=== PATIENT | female | born 1970 | race Asian ===

== ENCOUNTER 2017-11-30 11:10 | Inpatient (IN) | payer BC ==
[~2017-11-30] VITALS: Ht 167.6 cm; Wt 115.2 kg
[2017-11-30 11:10] VITALS: BP_SYST 141
[2017-11-30] MEDS ORDERED: NACL 0.9% 1,000 ML IV ONE (11:31)
[2017-11-30] MEDS ORDERED: ONDANSETRON HCL 4 MG/2 ML VIAL IVP ONE (11:45)
[2017-11-30] MEDS ORDERED: KETOROLAC TROMETHAMINE 30 MG VIAL IVP ONE ×2 (11:45→19:24)
[2017-11-30 11:47] LABS: BASOPHILS % (AUTO) 0.6 % (0.0-2.0); EOSINOPHILS # (AUTO) 0.3 K/uL (0.0-0.4); EOSINOPHILS % (AUTO) 4.5 % (0.0-4.0); HEMATOCRIT 35.9 % (36-48); HEMOGLOBIN 11.8 g/dL (12.0-16.0); LYMPHOCYTES # (AUTO) 1.3 K/uL (1.0-5.5); LYMPHOCYTES % (AUTO) 21.6 % (20.5-51.5); MEAN CORPUSCULAR HEMOGLOBIN 27 pg (27-31); MEAN CORPUSCULAR HGB CONC 33 % (32-36); MEAN CORPUSCULAR VOLUME 81 fL (79.0-98.0); MONOCYTES # (AUTO) 0.3 K/uL (0.0-1.0); NEUTROPHILS # (AUTO) 4.2 K/uL (1.8-7.7); NEUTROPHILS % (AUTO) 68.3 % (40.0-70.0); PLATELET COUNT (AUTO) 223 K/uL (130-430); RED BLOOD CELL COUNT(AUTO) 4.42 MIL/uL (4.2-6.2); RED CELL DISTRIBUTION WIDTH 15.7 % (9.0-15.0); WHITE BLOOD COUNT (AUTO) 6.1 K/uL (4.8-10.8)
[2017-11-30 11:57] LABS: BILIRUBIN,URINE NEGATIVE (NEGATIVE); BLOOD, URINE 3+ (NEGATIVE); CLARITY/URINE HAZY (CLEAR); COLOR,URINE YELLOW (YELLOW); GLUCOSE,URINE NEGATIVE (NEGATIVE); KETONES,URINE NEGATIVE (NEGATIVE); LEUKOCYTE ESTERASE ,URINE NEGATIVE (NEGATIVE); NITRITE, URINE NEGATIVE (NEGATIVE); PROTEIN URINE 1+ (NEGATIVE); UROBILINOGEN,URINE 0.2 (0.2-1.0)
[2017-11-30 11:59] LABS: BACTERIA,URINE FEW /HPF (None Seen); MUCUS,URINE 1+ /LPF (None Seen); RBC,URINE >100 /HPF (0-3); WBC,URINE 0-3 /HPF (0-3)
[2017-11-30 12:11] LABS: PROTHROMBIN TIME 10.1 SECS (9.5-12.5)
[2017-11-30 12:13] LABS: POTASSIUM 3.6 mmol/L (3.5-5.1)
[2017-11-30 12:14] LABS: CALCIUM 8.9 mg/dL (8.4-11.0); CREATININE 0.65 mg/dL (0.55-1.30)
[2017-11-30 12:16] LABS: ALBUMIN 4.1 g/dL (3.4-4.8); TOTAL BILIRUBIN 0.5 mg/dL (0.0-1.0)
[2017-11-30] MEDS ORDERED: HYDROmorphone 2 MG/ML VIAL IVP ONE (12:30)
[2017-11-30] MEDS ORDERED: DILT120C21 PO (14:09)
[2017-11-30] MEDS ORDERED: DIPHENHYDRAMINE INJ 50 MG/ML VIAL IVP ONE (14:15)
[2017-11-30 14:42] VITALS: BP_SYST 149
[2017-11-30] MEDS: KETOROLAC TROMETHAMINE 15 MG VIAL IVP PRN ×2 (15:26→21:43)
[2017-11-30] MEDS: D5NS 1,000 ML IV SCH ×2 (15:31→22:37)
[2017-11-30 15:55] VITALS: BP_SYST 149
[2017-11-30] MEDS: traMADol HCL HCL 50 MG TABLET (ULTRAM) PO PRN (17:40)
[2017-11-30] MEDS ORDERED: PROPOFOL 200MG/ 20ML VIAL (DIPRIVAN) IV ONE (18:50)
[2017-11-30] MEDS ORDERED: BUPIVACAINE /PF 0.75% 10 ML VIAL INJ ONE (18:50)
[2017-11-30] MEDS ORDERED: MIDAZOLAM HCL 5 MG/5 ML VIAL IVP ONE ×2 (18:50→19:24)
[2017-11-30] MEDS ORDERED: METOCLOPRAMIDE HCL 10 MG/2 ML VIAL IVP ONE (19:24)
[2017-11-30] MEDS ORDERED: SEVOFLURANE 15 MIN GAS INH ONE (19:24)
[2017-11-30] MEDS ORDERED: CEFAZOLIN 2 GM IVPB PREMIX 50 ML IV ONE (19:24)
[2017-11-30] MEDS ORDERED: fentaNYL CITRATE/PF 100 MCG/2 ML AMP IVP ONE ×3 (19:24→20:45)
[2017-11-30] MEDS ORDERED: NS 1000 ML BAG IV ONE (19:24)
[2017-11-30] MEDS ORDERED: LR 1,000 ML IV.SOLN IV ONE (19:24)
[2017-11-30] MEDS ORDERED: IOHEXOL 50 ML IV ONE (19:37)
[2017-11-30] MEDS ORDERED: LR 1,000 ML IV ONE (20:10)
[2017-11-30] MEDS ORDERED: DIPHENHYDRAMINE INJ 50 MG/ML VIAL IVP PRN (20:15)
[2017-11-30] MEDS ORDERED: ePHEDrine sulfate 50 MG/ML VIAL IVP PRN (20:15)
[2017-11-30] MEDS ORDERED: fentaNYL CITRATE/PF 100 MCG/2 ML AMP IVP PRN (20:15)
[2017-11-30] MEDS ORDERED: NALOXONE HCL 0.4 MG/ML AMP (NARCAN) IVP PRN (20:15)
[2017-11-30] MEDS ORDERED: ONDANSETRON HCL 4 MG/2 ML VIAL IVP PRN ×2 (20:15)
[2017-11-30] MEDS ORDERED: fentaNYL CITRATE/PF 100 MCG/2 ML AMP ONE (20:33)
[2017-11-30 20:41] VITALS: BP_SYST 149
[2017-11-30 20:55] VITALS: BP_SYST 130
[2017-11-30] MEDS: DILTIAZEM HCL 120 MG CAP.SR.24H PO SCH (22:36)
[2017-12-01 00:16] VITALS: BP_SYST 144
[2017-12-01] MEDS: traMADol HCL HCL 50 MG TABLET (ULTRAM) PO PRN ×4 (01:09→22:19)
[2017-12-01] MEDS: KETOROLAC TROMETHAMINE 15 MG VIAL IVP PRN ×3 (03:13→20:38)
[2017-12-01 08:00] VITALS: BP_SYST 124
[2017-12-01] MEDS: D5NS 1,000 ML IV SCH ×3 (08:25→19:55)
[2017-12-01] MEDS: fentaNYL CITRATE/PF 100 MCG/2 ML AMP IVP PRN ×3 (09:22→18:32)
[2017-12-01 12:00] VITALS: BP_SYST 127
[2017-12-01 16:00] VITALS: BP_SYST 136
[2017-12-01 20:00] VITALS: BP_SYST 128
[2017-12-01] MEDS: ONDANSETRON HCL 4 MG/2 ML VIAL IVP PRN (20:28)
[2017-12-01] MEDS: DILTIAZEM HCL 120 MG CAP.SR.24H PO SCH (20:28)
[2017-12-01] MEDS: ALBUTEROL SULFATE 0.083% 2.5 MG/3 ML VIAL.NEB INH PRN (20:30)
[2017-12-02] MEDS: ONDANSETRON HCL 4 MG/2 ML VIAL IVP PRN (00:22)
[2017-12-02] MEDS: fentaNYL CITRATE/PF 100 MCG/2 ML AMP IVP PRN (00:23)
[2017-12-02 00:28] VITALS: BP_SYST 140
[2017-12-02] MEDS: D5NS 1,000 ML IV SCH ×4 (00:29→21:44)
[2017-12-02] MEDS: KETOROLAC TROMETHAMINE 30 MG VIAL IVP PRN ×2 (08:15→14:23)
[2017-12-02] MEDS: ALBUTEROL SULFATE 0.083% 2.5 MG/3 ML VIAL.NEB INH PRN (08:25)
[2017-12-02 08:42] VITALS: BP_SYST 144
[2017-12-02 12:00] VITALS: BP_SYST 142
[2017-12-02] MEDS ORDERED: IOHEXOL 50 ML IV ONE (19:11)
[2017-12-02] MEDS ORDERED: KETOROLAC TROMETHAMINE 30 MG VIAL IVP PRN (19:45)
[2017-12-02] MEDS ORDERED: fentaNYL CITRATE/PF 100 MCG/2 ML AMP IVP PRN ×2 (19:45)
[2017-12-02] MEDS ORDERED: ONDANSETRON HCL 4 MG/2 ML VIAL IVP PRN (19:45)
[2017-12-02] MEDS ORDERED: ONDANSETRON HCL 4 MG/2 ML VIAL ONE (20:28)
[2017-12-02] MEDS ORDERED: ACETAMINOPHEN/CODEINE 300 MG-30 MG TABLET PO PRN (20:30)
[2017-12-02] MEDS ORDERED: ONDANSETRON 4 MG ODT TAB PO PRN (20:30)
[2017-12-02] MEDS ORDERED: ONDANSETRON HCL 4 MG/2 ML VIAL IVP ONE (20:31)
[2017-12-02 20:48] VITALS: BP_SYST 135
[2017-12-02] MEDS ORDERED: TAMSULOSIN HCL 0.4 MG CAP PO SCH (21:00)
[2017-12-02 21:05] VITALS: BP_SYST 155
[2017-12-02] MEDS: IBUPROFEN 800 MG TABLET PO SCH (21:15)
[2017-12-02] MEDS: METHOCARBAMOL 500 MG TABLET PO SCH (21:15)
[2017-12-02] MEDS: DILTIAZEM HCL 120 MG CAP.SR.24H PO SCH (21:15)
[2017-12-02] MEDS: ACETAMINOPHEN/CODEINE 300 MG-30 MG TABLET PO PRN (23:07)
[2017-12-03] VITALS: BP_SYST 142
[2017-12-03] MEDS: D5NS 1,000 ML IV SCH ×2 (03:00→05:26)
[2017-12-03] MEDS: ACETAMINOPHEN/CODEINE 300 MG-30 MG TABLET PO PRN ×3 (03:09→12:14)
[2017-12-03] MEDS ORDERED: DOCU250C PO (06:38)
[2017-12-03] MEDS ORDERED: BISACODYL 5 MG TABLET.DR (DULCOLAX) PO ONE (06:45)
[2017-12-03] MEDS ORDERED: DOCUSATE SODIUM 100 MG CAPSULE PO ONE (07:00)
[2017-12-03 07:02] LABS: BASOPHILS % (AUTO) 0.4 % (0.0-2.0); EOSINOPHILS # (AUTO) 0.2 K/uL (0.0-0.4); EOSINOPHILS % (AUTO) 3.6 % (0.0-4.0); HEMATOCRIT 29.4 % (36-48); HEMOGLOBIN 9.7 g/dL (12.0-16.0); LYMPHOCYTES # (AUTO) 1.7 K/uL (1.0-5.5); LYMPHOCYTES % (AUTO) 27.7 % (20.5-51.5); MEAN CORPUSCULAR HEMOGLOBIN 27 pg (27-31); MEAN CORPUSCULAR HGB CONC 33 % (32-36); MEAN CORPUSCULAR VOLUME 83 fL (79.0-98.0); MONOCYTES # (AUTO) 0.4 K/uL (0.0-1.0); MONOCYTES % (AUTO) 6.1 % (1.7-9.3); NEUTROPHILS # (AUTO) 3.7 K/uL (1.8-7.7); NEUTROPHILS % (AUTO) 62.2 % (40.0-70.0); PLATELET COUNT (AUTO) 176 K/uL (130-430); RED BLOOD CELL COUNT(AUTO) 3.56 MIL/uL (4.2-6.2); RED CELL DISTRIBUTION WIDTH 15.4 % (9.0-15.0)
[2017-12-03 07:48] LABS: CALCIUM 7.9 mg/dL (8.4-11.0); CREATININE 0.62 mg/dL (0.55-1.30)
[2017-12-03 08:00] VITALS: BP_SYST 125
[2017-12-03] MEDS ORDERED: DOCUSATE SODIUM 100 MG CAPSULE PO SCH (09:00)
[2017-12-03] MEDS: IBUPROFEN 800 MG TABLET PO SCH (09:24)
[2017-12-03] MEDS: METHOCARBAMOL 500 MG TABLET PO SCH (09:24)
[2017-12-03] MEDS ORDERED: POTASSIUM CHLORIDE 20 MEQ TAB.PRT.SR PO ONE (11:30)
[2017-12-03] MEDS: ALBUTEROL SULFATE 0.083% 2.5 MG/3 ML VIAL.NEB INH PRN (11:38)
[2017-12-03 12:10] VITALS: BP_SYST 125
[2017-12-03 12:49] VITALS: BP_SYST 125
== END 2017-12-03 12:53 | disposition home or self-care (01) | DRG 694 ==
LOC: SED 11:10 → SMU 13:59
PROVIDERS: ADMIT Internal Medicine Hospice and Palliative Medicine; ATTEND Internal Medicine Hospice and Palliative Medicine
PROC: BT1F1ZZ Fluoroscopy of Left Kidney, Ureter and Bladder using Low Osmolar Contrast (ICD-10-PCS; 2017-11-30)
PROC: 0T778DZ Dilation of Left Ureter with Intraluminal Device, Via Natural or Artificial Opening Endoscopic (ICD-10-PCS; principal; 2017-11-30 19:30)
PROC: 0TP98DZ Removal of Intraluminal Device from Ureter, Via Natural or Artificial Opening Endoscopic (ICD-10-PCS; 2017-12-02)
PROC: 0T778DZ Dilation of Left Ureter with Intraluminal Device, Via Natural or Artificial Opening Endoscopic (ICD-10-PCS; 2017-12-02)
PROC: BT1F1ZZ Fluoroscopy of Left Kidney, Ureter and Bladder using Low Osmolar Contrast (ICD-10-PCS; 2017-12-02)
DX: N13.2 Hydronephrosis with renal and ureteral calculous obstruction (principal); Z68.41 Body mass index [BMI] 40.0-44.9, adult; R31.9 Hematuria, unspecified; E66.9 Obesity, unspecified; Z87.442 Personal history of urinary calculi; Z88.8 Allergy status to other drugs, medicaments and biological substances; Z79.899 Other long term (current) drug therapy
CPT/HCPCS: 36415; 74018; 76000; 80048; 80053; 81000-TC; 82150-TC; 83690-TC; 84702-TC; 85025; 85610-TC; 85730-TC; 87081; 88300; 94010; 94640; 94760; 96361; 96374; 96375; 99285; J0690; J1170; J1200; J1885; J2250; J2405; J2704; J2765; J3010; J3490; J7030; J7042; J7120; Q0162; Q9967